=== PATIENT | female | born 1990 | race Asian ===

== ENCOUNTER 2020-02-04 01:00 | Inpatient (IN) ==
[2020-02-04] MEDS ORDERED: OXYTOCIN 30 UNITS/500 ML BAG IV PRN ×2 (09:58)
--- NOTE | 2020-02-04 10:17 | History & Physical Report ---
Date of Service February 04, 2020 Assessment & Plan (1) Supervision of normal intrauterine in primigravida: 29 y/o at 41w1d who presents for a scheduled induction for late-term . Covid+ 01/20/20. Otherwise uncomplicated . GBS neg. O+. Rubella immune. - category I tracing. continue monitoring. - reactive NST 02/03/20. - maternal tachycardia 100 bpm on admission. will monitor. - IOL. titrate pitocin. - patient requested epidural. anesthesia consult placed. - NPO. LR 125/hr. - urine dip pending. - Covid+ 01/20/20. Negative covid test on 01/27/20 ([facility]). Patient has discussed w/ Dr. Braun from [facility] and has permission to deliver in regular room w/ at bedside as long as continues to be asymptomatic. Denies recent travel or sick contact. Denies covid symptoms, no cough, sore throat, fever/chills, diarrhea. - flu shot UTD 11/08/19 SB. (2) LGSIL on Pap smear of cervix: - LGSIL pap--> plan for colposcopy Admission and Anticipated Discharge Date Admission Date: February 04, 2020 History of Present Illness Primary Care Provider: NO PCP Valerie Pisano" Geo is a 29 y/o female currently at 41w1d WGA with an JAGDEEP 01/27/20 as determined by LMP who is here for scheduled induction for late-term . COVID+ on 01/20/20, w/ negative test on 01/27/20. Otherwise uncomplicated . intermittent irregular contractions; + movement; - fluid loss; - bloody show. Currently, denies pain. Had regular appointments with OB. Labs: Blood type: O+ (07/20/19) Antibody screen: negative (07/20/19) H.3 (today) Hct: 35.0L (today) WBC: 11.09H (today) Plt: 269 (today) Rubella: immune (07/20/19) RPR: nonreactive (07/20/19) Gonorrhea: not detected (05/21/19) Chlamydia: not detected (05/21/19) HIV: neg (07/20/19) HbSAg: neg (07/20/19) GBS: neg (01/03/20) Other screens: Labs Reviewed: declines CF/SMA & panorama -MH declines quad- TJH gbs neg--akh Allergies Allergy/AdvReac Type Severity Reaction Status Date / Time No Known Allergies Allergy Verified 02/03/20 15:30 Home Medications Medication Instructions Recorded Confirmed Type prenat.vits,evita,paw-xawh-wawcc 1 tab PO DAILY 06/09/19 02/04/20 History Patient History Medical History (Updated 02/04/20 @ 10:25 by Jimbo Cornejo MD) No acute medical problems Varicella vaccine Surgical History [place] teeth removed Family History (Updated 02/04/20 @ 10:20 by Jimbo Cornejo MD) Family/Other Heart disease Father Myocardial infarction Grandfather (Maternal) Myocardial infarction Social History (Updated 06/09/19 @ 13:16 by Cailin Agustin) Smoking Status: Never smoker Hx Alcohol Use: No Hx Substance Use: No Preferred Language: [place] Citizen Communication Ability: Effective Electrical Instrumentation Technician Required: No Beliefs That Will Affect Care: None marital status: marital status details: Hubert Sevilla 30 Current Living Situation: Spouse Current Living Situation Comment: lives with spouse, 2 cats does not change litter current occupational status: unemployed current occupation: homemaker Other Information That Helps Us Care for You: No Feels Safe at Home: Yes Safety Concerns: Feels Safe At This Time Assistive Devices: None Review of Systems Denies fever, chills, sweats Denies shortness of breath, difficulty breathing, chest pain, palpitations, chest pressure. Denies breast pain. Denies dysuria. Denies headache Denies nausea/vomiting. Denies numbness, tingling, weakness. Physical Exam Physical Exam: General: Alert, oriented. No acute distress. Cardiac: Regular rate and rhythm, no murmurs/rubs/gallops. Respiratory: Clear to auscultation bilaterally, no wheezes/rales/rhonchi. No increased work of breathing. Symmetrical chest rise. No respiratory distress. Abdomen: Gravid; + FHTs Pelvic: Exam deferred. Please see attending note. Lower Extremities: No lower extremity edema or swelling. No deep calf pain. Jagruti's negative bilaterally Results & Data ([facility]) Vital Signs (Past 12 Hours) Vital Signs Pulse BP 02/04/20 10:00 100 H 117/73 Monitoring External Monitor External FHT and external uterine monitors used; Category I tracing; baseline upper 130s. moderate FHT variability. + accels. No late or variable decels. No ctx Supervising Physician Co-Signing Physician Notes Resident Physician Supervision Note: I interviewed and examined the patient. Discussed with Dr. Cornejo and agree with findings and plan as documented in the note. Any exceptions or clarifications are listed here: pt here for planned induction, start pit and plan arom with regular pattern. sve 2-3/50/-2, efw 7.5#.fhts categ 1. pt and partner deny any ?s or concerns. Documented By: Nilsa Zee MD, FACOG Resident Activity Tracking Resident Involvement: Resident Care Provided Care Provided: OB Delivery
[2020-02-04 10:26] LABS: Hemoglobin 12.3 g/dL (12.0-16.0); Mean Corpuscular Hemoglobin 21.7 pg (25-34); Mean Corpuscular Hgb Conc 35.1 g/dL (32-36); Mean Corpuscular Volume 61.7 fL (80-100); Mean Platelet Volume 8.9 fL (7.4-10.4); Nucleated RBC # (auto) 0.06 K/uL (0-0); Nucleated RBC % (auto) 0.6 %; Platelet Count 269 K/uL (130-400); RDW Coefficient of Variation 16.5 % (11.5-14.5); Red Blood Count 5.67 M/uL (4.2-5.4); White Blood Count 11.09 K/uL (4.8-10.8)
[2020-02-04] MEDS: LACTATED RINGER'S 1,000 ML IV PRN ×3 (11:10→18:48)
--- NOTE | 2020-02-04 13:11 | Labor Progress Brief Note ---
Date of Service February 04, 2020 Subjective Reason For Note: Routine Evaluation pt feeling urge to push, 10cm per nurse Assessment & Plan (1) Encounter for elective induction of labor: (2) Gestational hypertension: begin 2nd stage. Admission and Anticipated Discharge Date Admission Date: February 04, 2020 Physical Exam Constitutional: WD/WN, vitals as above Genitourinary: OB Exam Monitor Tracing: + external FHT monitor used (140 mod variability), + external uterine monitor used (q2-3), + category II, + normal FHT variability and + variable decelerations Results & Data ([facility]) Vital Signs (Past 12 Hours) Vital Signs Temp Pulse Resp BP 02/04/20 13:00 18 02/04/20 12:05 90 114/71 02/04/20 12:00 20 02/04/20 11:30 20 02/04/20 11:29 105 H 119/76 02/04/20 11:00 20 02/04/20 10:30 98.1 F 18 02/04/20 10:15 20 02/04/20 10:08 98.1 F 20 02/04/20 10:00 100 H 117/73 Coding Level of Care Code None Diagnoses Encounter for elective induction of labor Z34.90 Gestational hypertension O13.9
--- NOTE | 2020-02-04 13:17 | Labor Progress Brief Note ---
Date of Service February 04, 2020 Subjective Reason For Note: Routine Evaluation feeling some tightening Assessment & Plan (1) Encounter for elective induction of labor: (2) Post-dates : will see how arom advances labor. fhts categ 1. c/w pitocin Admission and Anticipated Discharge Date Admission Date: February 04, 2020 Physical Exam Constitutional: WD/WN, vitals as above Genitourinary: Manual OB Exam: + cervical dilation (2-3), + cervical effacement (75%), + station -2 and + amniotic fluid (arom, mec) OB Exam Monitor Tracing: + external FHT monitor used (125 mod variability), + external uterine monitor used (q2-3), + category I and + normal FHT variability Results & Data ([facility]) Vital Signs (Past 12 Hours) Vital Signs Temp Pulse Resp BP 02/04/20 13:12 91 H 02/04/20 13:00 18 02/04/20 12:05 90 114/71 02/04/20 12:00 20 02/04/20 11:30 20 02/04/20 11:29 105 H 119/76 02/04/20 11:00 20 02/04/20 10:30 98.1 F 18 02/04/20 10:15 20 02/04/20 10:08 98.1 F 20 02/04/20 10:00 100 H 117/73 Coding Level of Care Code None Diagnoses Encounter for elective induction of labor Z34.90 Post-dates O48.0
[2020-02-04] MEDS ORDERED: BUPIVACAINE 0.25% 30 ML VIAL ONE (15:06)
[2020-02-04] MEDS ORDERED: SODIUM CHLORIDE 0.9% INJ 10 ML VIAL ONE (15:06)
[2020-02-04] MEDS ORDERED: ePHEDrine sulfate 50 MG/ML AMP ONE (15:06)
[2020-02-04] MEDS ORDERED: fentaNYL citrate 100 MCG/2 ML VIAL ONE (15:07)
[2020-02-04] MEDS ORDERED: fentaNYL 2MCG/ML ROPIVACAINE 1.25MG/ML 100 ML BAG EPI ONE (15:07)
[2020-02-04] MEDS ORDERED: ONDANSETRON INJ 2 MG/ML 2 ML VIAL IV PRN (17:11)
[2020-02-04] MEDS ORDERED: diphenhydrAMINE 50 MG/ML VIAL IV PRN (17:11)
[2020-02-04] MEDS ORDERED: ePHEDrine sulfate 50 MG/ML AMP IV PRN (17:11)
[2020-02-04] MEDS ORDERED: NALOXONE HCL 0.4 MG/1 ML VIAL/CARP IV PRN (17:11)
[2020-02-04] MEDS ORDERED: NALOXONE HCL 1 MG in SODIUM CHLORIDE 0.9% 1000ML 1,000 ML IV PRN (17:11)
[2020-02-04] MEDS ORDERED: fentaNYL 2MCG/ML ROPIVACAINE 1.25MG/ML 100 ML BAG EPI PRN (17:11)
[2020-02-04] MEDS ORDERED: PROMETHAZINE HCL 6.25 MG in SODIUM CHLORIDE 0.9% 50 ML IV PRN (17:11)
--- NOTE | 2020-02-04 17:13 | Anesthesiology Consultation ---
Date of Service February 04, 2020 Assessment & Plan (1) Encounter for pre-operative examination: Chart Review Chart Review: Patient NOT seen in Pre Admission Testing and Acceptable Risk for Labor Epidural Consults Requested none ASA ASA2 Proposed Anesthesia Anesthesia Type: Labor Epidural Risk / Benefits Reviewed With: PT / POA / Parent / Guardian, Accepts Plan and Informed Consent Obtained History Height/Weight Height: 5 ft 6 in Weight: 81.647 kg Allergies Allergy/AdvReac Type Severity Reaction Status Date / Time No Known Allergies Allergy Verified 02/03/20 15:30 Medications Home Medications Medication Instructions Recorded Confirmed Last Taken prenat.vits,evita,woq-gpug-krtle 1 tab PO DAILY 06/09/19 02/04/20 Unknown Active Medications Generic Name Dose Route Start Last Admin Trade Name Freq PRN Reason Stop Dose Admin Oxytocin 30 units in 500 mls @ 11 mls/hr 02/04/20 09:58 02/04/20 16:40 Pitocin IV 02/06/20 09:57 0.66 units/hr .Q24H PRN 11 mls/hr Labor Induction/Augmentation Titration Protocol 0.66 UNITS/HR Lactated Ringer's 1,000 mls @ 125 mls/hr 02/04/20 09:58 02/04/20 16:35 Lr IV 02/06/20 09:57 125 mls/hr .Q8H PRN Infusion L&D Protocol Protocol Past Medical History Medical History No acute medical problems Varicella vaccine Exercise / Class Metabolic Activity II 4-5 Yardwork/Stairs/Walk up hill Past Family History Family History Family/Other Heart disease Father Myocardial infarction Grandfather (Maternal) Myocardial infarction Past Surgical History Surgical History [place] teeth removed Past Anesthesia History No Hx of Anesthesia Complications and No Family Hx of Anesthesia Complications History of PONV No Hx of PONV and No Hx of Motion Sickness Social History Smoking Status: Never smoker Hx Alcohol Use: No Hx Substance Use: No substance use type: does not use Physical Exam Vital Signs Last Vital Signs Temp 36.4 C L 02/04/20 14:50 Pulse 90 02/04/20 17:11 Resp 20 12/18/20 16:31 BP 86/51 L 02/04/20 17:07 Pulse Ox 98 02/04/20 17:11 ENMT Mouth: no dentition abnormality Thyromental Distance: > or= 3.5 Finger Breadths Mallampati Class: II Neck normal visual inspection Respiratory normal respiratory effort Auscultation: lungs clear to auscultation bilaterally Cardiovascular Rate/Rhythm: regular rate and regular rhythm Psychiatric Orientation: alert Testing Laboratory Results 02/04/20 10:14
--- NOTE | 2020-02-04 17:27 | Labor Progress Brief Note ---
Date of Service February 04, 2020 Subjective Reason For Note: Routine Evaluation comfortable with epidural, just vomited, bp low, getting ephedrine Assessment & Plan (1) Post-dates : (2) Encounter for elective induction of labor: will use iupc to guide pitocin. d/w nursing and they felt would benefit. pit at13. fhts categ 1. Admission and Anticipated Discharge Date Admission Date: February 04, 2020 Physical Exam Constitutional: WD/WN, vitals as above Genitourinary: Manual OB Exam: + cervical dilation (3), + cervical effacement (75) and + station -2 OB Exam Monitor Tracing: + external FHT monitor used (150 mod variability), + external uterine monitor used (q2-3 pit at 13), + intra-uterine pressure catheter used (placed), + category I and + normal FHT variability Results & Data ([place]) Vital Signs (Past 12 Hours) Vital Signs Temp Pulse Resp BP Pulse Ox 02/04/20 17:22 106 H 88/54 L 02/04/20 17:21 101 H 99 02/04/20 17:16 128 H 99 02/04/20 17:11 90 98 02/04/20 17:07 96 H 86/51 L 02/04/20 17:06 89 96 02/04/20 17:01 97 H 20 100 02/04/20 16:59 97.7 F 02/04/20 16:56 96 H 100 02/04/20 16:53 96 H 87/52 L 02/04/20 16:51 94 H 99 02/04/20 16:46 97 H 99 02/04/20 16:44 91 H 112/54 L 02/04/20 16:41 90 98 02/04/20 16:39 85 92 02/04/20 16:37 91 H 88/44 L 02/04/20 16:36 87 98 02/04/20 16:31 92 H 20 94 02/04/20 16:26 103 H 99 02/04/20 16:24 94 H 88/43 L 02/04/20 16:21 100 H 20 99 02/04/20 16:16 82 99 02/04/20 16:14 85 93 02/04/20 16:11 107 H 100 02/04/20 16:07 98 H 107/54 L 02/04/20 16:06 97 H 20 100 02/04/20 16:03 112 H 110/53 L 02/04/20 16:02 105 H 105/51 L 02/04/20 16:01 120 H 99 02/04/20 15:58 93 H 85/46 L 02/04/20 15:56 88 99 02/04/20 15:51 103 H 104/52 L 99 02/04/20 15:50 20 02/04/20 15:49 93 H 111/54 L 02/04/20 15:48 94 H 116/58 L 02/04/20 15:46 97 H 100 02/04/20 15:45 99 H 117/57 L 02/04/20 15:42 93 H 115/59 L 02/04/20 15:41 92 H 99 02/04/20 15:36 89 99 02/04/20 15:31 88 98 02/04/20 15:26 87 112/79 99 02/04/20 14:54 83 129/82 02/04/20 14:50 97.5 F L 20 02/04/20 14:30 18 02/04/20 14:11 83 109/70 02/04/20 14:00 98.2 F 18 02/04/20 13:30 20 02/04/20 13:12 91 H 02/04/20 13:00 18 02/04/20 12:05 90 114/71 02/04/20 12:00 97.9 F 20 02/04/20 11:30 20 02/04/20 11:29 105 H 119/76 02/04/20 11:00 20 02/04/20 10:30 98.1 F 18 02/04/20 10:15 20 02/04/20 10:08 98.1 F 20 02/04/20 10:00 100 H 117/73 Coding Level of Care Code None Diagnoses Post-dates O48.0 Encounter for elective induction of labor Z34.90
--- NOTE | 2020-02-04 22:00 | Labor Progress Brief Note ---
Date of Service February 04, 2020 Subjective Reason For Note: Routine Evaluation feeling some pressure Assessment & Plan (1) Encounter for elective induction of labor: (2) Post-dates : good cx change. fhts categ 1. c/w pit. Admission and Anticipated Discharge Date Admission Date: February 04, 2020 Physical Exam Constitutional: WD/WN, vitals as above Genitourinary: Manual OB Exam: + cervical dilation 8 cm, + cervical effacement 90% and + station 0 OB Exam Monitor Tracing: + external FHT monitor used (140 mod variability), + external uterine monitor used (q2-3), + category I and + normal FHT variability Results & Data ([facility]) Vital Signs (Past 12 Hours) Vital Signs Temp Pulse Resp BP Pulse Ox 02/04/20 21:52 109 H 119/66 20 21:51 97 H 100 1820 21:46 93 H 99 1820 21:41 91 H 96 1820 21:38 93 H 117/59 L 20 21:36 90 96 1820 21:31 91 H 96 18/20 21:26 99 H 95 18/20 21:22 105 H 120/60 18/20 21:21 96 H 96 18/20 21:16 91 H 98 18/20 21:11 94 H 96 18/20 21:07 93 H 115/61 18/20 21:06 98 H 97 18/20 21:01 98 H 98 18/20 20:56 88 97 1820 20:52 106 H 106/59 L 20 20:51 98.4 F 99 H 99 18/20 20:48 96 H 119/61 18/20 20:46 106 H 98 18/20 20:41 90 98 18/20 20:36 91 H 97 18/20 20:31 90 18 98 18/20 20:26 92 H 99 18/20 20:23 89 120/61 18/20 20:21 106 H 99 18/20 20:16 87 99 18/20 20:11 91 H 100 18/20 20:08 92 H 119/60 12/18/20 20:06 97 H 100 12/18/20 20:01 113 H 18 100 12/18/20 19:56 100 H 100 12/18/20 19:52 102 H 114/62 12/18/20 19:51 97 H 100 12/18/20 19:46 93 H 100 12/18/20 19:41 89 100 12/18/20 19:38 93 H 123/64 12/18/20 19:36 123 H 100 12/18/20 19:31 92 H 18 100 12/18/20 19:26 105 H 100 12/18/20 19:22 113 H 121/66 12/18/20 19:21 111 H 100 12/18/20 19:18 97.9 F 18 12/18/20 19:16 98 H 100 12/18/20 19:11 102 H 100 12/18/20 19:07 114 H 108/57 L 12/18/20 19:06 96 H 100 12/18/20 19:01 105 H 100 12/18/20 18:56 111 H 100 12/18/20 18:53 105 H 108/62 12/18/20 18:51 102 H 100 12/18/20 18:46 95 H 100 12/18/20 18:41 122 H 100 12/18/20 18:37 107 H 127/67 12/18/20 18:36 105 H 100 12/18/20 18:31 99 H 18 100 12/18/20 18:26 107 H 100 12/18/20 18:23 111 H 112/64 12/18/20 18:21 100 H 100 12/18/20 18:16 100 H 100 12/18/20 18:11 110 H 99 12/18/20 18:08 109 H 116/66 12/18/20 18:06 102 H 100 12/18/20 18:01 110 H 20 100 12/18/20 17:56 116 H 100 12/18/20 17:52 107 H 119/67 12/18/20 17:51 106 H 98 12/18/20 17:46 107 H 20 99 12/18/20 17:41 103 H 97 12/18/20 17:37 96 H 133/76 12/18/20 17:36 94 H 100 12/18/20 17:31 111 H 20 100 12/18/20 17:28 88 100/54 L 12/18/20 17:26 96 H 100 12/18/20 17:22 106 H 88/54 L 12/18/20 17:21 101 H 99 12/18/20 17:16 128 H 20 99 12/18/20 17:11 90 98 12/18/20 17:07 96 H 86/51 L 12/18/20 17:06 89 96 12/18/20 17:01 97 H 20 100 12/18/20 16:59 97.7 F 12/18/20 16:56 96 H 100 12/18/20 16:53 96 H 87/52 L 12/18/20 16:51 94 H 99 12/18/20 16:46 97 H 99 12/18/20 16:44 91 H 112/54 L 12/18/20 16:41 90 98 12/18/20 16:39 85 92 12/18/20 16:37 91 H 88/44 L 12/18/20 16:36 87 98 12/18/20 16:31 92 H 20 94 12/18/20 16:26 103 H 99 12/18/20 16:24 94 H 88/43 L 12/18/20 16:21 100 H 20 99 12/18/20 16:16 82 99 12/18/20 16:14 85 93 12/18/20 16:11 107 H 100 12/18/20 16:07 98 H 107/54 L 12/18/20 16:06 97 H 20 100 12/18/20 16:03 112 H 110/53 L 12/18/20 16:02 105 H 105/51 L 12/18/20 16:01 120 H 99 12/18/20 15:58 93 H 85/46 L 12/18/20 15:56 88 99 12/18/20 15:51 103 H 104/52 L 99 12/18/20 15:50 20 12/18/20 15:49 93 H 111/54 L 12/18/20 15:48 94 H 116/58 L 12/18/20 15:46 97 H 100 12/18/20 15:45 99 H 117/57 L 12/18/20 15:42 93 H 115/59 L 12/18/20 15:41 92 H 99 12/18/20 15:36 89 99 02/04/20 15:31 88 98 02/04/20 15:26 87 112/79 99 02/04/20 14:54 83 129/82 02/04/20 14:50 97.5 F L 20 02/04/20 14:30 18 02/04/20 14:11 83 109/70 02/04/20 14:00 98.2 F 18 02/04/20 13:30 20 02/04/20 13:12 91 H 02/04/20 13:00 18 02/04/20 12:05 90 114/71 02/04/20 12:00 97.9 F 20 02/04/20 11:30 20 02/04/20 11:29 105 H 119/76 02/04/20 11:00 20 02/04/20 10:30 98.1 F 18 02/04/20 10:15 20 02/04/20 10:08 98.1 F 20 02/04/20 10:00 100 H 117/73 Coding Level of Care Code None Diagnoses Encounter for elective induction of labor Z34.90 Post-dates O48.0
[2020-02-05] MEDS ORDERED: MINERAL OIL 30 ML UDC ONE (00:10)
[2020-02-05] MEDS ORDERED: LIDOCAINE HCL 1% 20 ML VIAL ONE (00:43)
[2020-02-05] MEDS ORDERED: oxyCODONE/ACETAMINOPHEN 5mg/325mg TAB PO PRN (01:06)
[2020-02-05] MEDS ORDERED: ACETAMINOPHEN 325 MG TAB PO PRN (01:06)
[2020-02-05] MEDS ORDERED: OXYTOCIN 30 UNITS/500 ML BAG IV PRN (01:06)
[2020-02-05] MEDS ORDERED: SUPERCREAM 0.870% 15 GM JAR EXT PRN (01:09)
[2020-02-05] MEDS ORDERED: DIPHTHERIA/TETANUS/PERTUSSIS 0.5 ML SYR/VIAL IM ONE (01:09)
[2020-02-05] MEDS ORDERED: HYDROCORTISONE ACETATE 25 MG SUPP PR PRN (01:09)
[2020-02-05] MEDS ORDERED: BENZOCAINE 20% AER SPR 82.5 GM CAN EXT PRN (01:09)
[2020-02-05] MEDS ORDERED: miSOPROStoL 200 MCG TAB PR ONE (01:09)
[2020-02-05] MEDS: OXYTOCIN 20 UNITS in LACTATED RINGER'S 1,000 ML IV SCH ×2 (01:10→09:32)
--- NOTE | 2020-02-05 01:12 | Delivery Summary ---
Vaginal Delivery Summary Date of Service February 05, 2020 The patient dilated to complete and pushed to deliver a viable female infant Ap gars 8 and 9 via over partial 3rd degree perineal laceration. Mouth and nose bulb suctioned at perineum. Shoulders and body delivered with ease. was vigorous and crying at . Cord clamped at 30 seconds of life and infant to maternal abdomen where the cord was then doubly clamped and cut. Placenta delivered spontaneously and intact, three-vessel cord. Hemostasis not achieved with dilute pitocin and uterine massage and therefore 800mcg cytotec placed rectally. Bladder drained under sterile conditions for approximately 300 cc under sterile conditions. Hemostasis is improving. Laceration repaired in multiple layers with 2-0 and 3-0 vicryl and anterior anal capsule reapproximated. Bilateral labia lacerations noted. Rectal neg for sutures. Cervix and sulci intact. EBL 400 cc. Mother and baby stable recovery. [facility] Vaginal Delivery Charge Vaginal Delivery Codes: 54139 global code for the antepartum, delivery, and post-
[2020-02-05] MEDS ORDERED: miSOPROStoL 200 MCG TAB ONE (04:25)
--- NOTE | 2020-02-05 07:56 | Anesthesia Procedure Note ---
Date of Service February 05, 2020 Anesthesia Post Epidural Note Vital Signs Vital Signs: Temp Pulse Resp BP Pulse Ox 37.1 C 100 H 18 127/61 98 02/05/20 03:15 02/05/20 03:15 02/05/20 03:15 02/05/20 03:15 02/05/20 00:41 Pain Intensity Lower Abdomen: Pain Intensity: 0 Notes Mental Status: alert / awake / arousable and participated in evaluation Patient Amnestic to Procedure: Yes Nausea / Vomiting: adequately controlled Pain: adequately controlled Airway Patency, RR, SpO2: stable & adequate BP & HR: stable & adequate Hydration State: stable & adequate Anesthetic Complications: no major complications apparent and Pt Satisfied with anesthetic care
[2020-02-05] MEDS: DOCUSATE SODIUM 100 MG CAP PO SCH ×2 (07:57→20:38)
[2020-02-05] MEDS: IBUPROFEN 600 MG TAB PO PRN ×4 (07:57→23:01)
[2020-02-06 05:53] LABS: Hematocrit (blood only) 30.9 % (37-47)
--- NOTE | 2020-02-06 08:01 | Obstetrical Progress Note ---
Date of Service February 06, 2020 Assessment & Plan (1) Post-dates : ppd 2 meets criteria. home Subjective Ambulation: ambulating normally Voiding: no voiding problems Diet Tolerance:: regular diet Lochia:: Small Feeding Type:: breast feeding Current Pain Level(1-10): 1 Physical Exam Constitutional WD/WN, vitals as above (Ext neg) Results & Data ([facility]) Vital Signs (Past 12 Hours) Vital Signs Temp Pulse Resp BP Pulse Ox 02/06/20 07:20 97.7 F 73 18 119/79 100 02/05/20 23:00 97.5 F L 76 16 109/74 100
[2020-02-06] MEDS: DOCUSATE SODIUM 100 MG CAP PO SCH (08:31)
== END 2020-02-06 13:05 | disposition home or self-care (01) | DRG 768 ==
LOC: 4S1 09:49 → 4S2 02-05 03:31

== ENCOUNTER 2021-12-07 17:00 | Inpatient (IN) ==
[2021-12-07] MEDS ORDERED: LIDOCAINE 1% LOCAL 20 ML VIAL INFIL PRN (17:31)
[2021-12-07] MEDS ORDERED: OXYTOCIN 30 UNITS/500 ML BAG IV PRN ×2 (17:31→22:49)
[2021-12-07] MEDS: LACTATED RINGER'S 1,000 ML IV PRN ×2 (17:46→20:58)
[2021-12-07 17:55] LABS: Hematocrit (blood only) 34.5 % (34.1-44.9); Mean Corpuscular Hemoglobin 21.3 pg (25.0-34.0); Mean Corpuscular Hgb Conc 34.8 g/dL (32.0-36.0); Mean Corpuscular Volume 61.3 fL (80.0-100.0); Mean Platelet Volume 9.3 fL (9.4-12.3); Nucleated RBC # (auto) 0.06 K/uL (0-0); Nucleated RBC % (auto) 0.4 %; Platelet Count 312 K/uL (130-400); RDW Coefficient of Variation 17.2 % (11.5-14.5); RDW Standard Deviation 33.4 fL (36.4-46.3); Red Blood Count 5.63 M/uL (3.93-5.22); White Blood Count 15.86 K/ul (4.8-10.8)
[2021-12-07] MEDS ORDERED: fentaNYL citrate 100 MCG/2 ML VIAL ONE (17:57)
[2021-12-07] MEDS ORDERED: LIDOCAINE 2%/EPINEPHRINE 1:200,000 20 ML SDV ONE (17:57)
[2021-12-07] MEDS ORDERED: ePHEDrine sulfate 50 MG/ML AMP ONE (17:57)
[2021-12-07] MEDS ORDERED: BUPIVACAINE 0.25% 30 ML VIAL ONE (17:57)
[2021-12-07] MEDS ORDERED: SODIUM CHLORIDE 0.9% INJ 10 ML VIAL ONE (17:57)
[2021-12-07] MEDS ORDERED: fentaNYL 2MCG/ML ROPIVACAINE 1.25MG/ML 100 ML BAG EPI ONE (17:58)
--- NOTE | 2021-12-07 19:05 | History & Physical Report ---
Date of Service December 07, 2021 Assessment & Plan (1) Supervision of normal intrauterine in multigravida: Plan: Patient is a 31-year-old presents in early labor. 1. Fetus: Cat 1 2.Labor: AROM when admitted 3. GBS negative 4. Vitals normal (2) Normal labor: History of Present Illness Primary Care Provider: Bc Montesinos III, CRNP patient is a 31-year-old currently at 40 weeks 3 days gestational age presents with early labor. Patient was found to be 5 cm dilated in clinic earlier today. Patient reports that contractions have increased in frequency and intensity and recurrent Occurring about every 5 minutes. Denies any leakage of fluid or vaginal bleeding. Patient's complicated by anemia. Allergies Allergy/AdvReac Type Severity Reaction Status Date / Time No Known Allergies Allergy Verified 12/07/21 11:03 Home Medications Medication Instructions Recorded Confirmed Type prenat.vits,evita,tkv-jfgi-iwgjo 1 tab PO DAILY 06/09/19 12/07/21 History Patient History Medical History No acute medical problems Supervision of normal intrauterine in primigravida Varicella vaccine Surgical History [place] teeth removed Family History Family/Other Heart disease Father Myocardial infarction Grandfather (Maternal) Myocardial infarction Denies family history of Ovarian cancer Prostate cancer Breast cancer Colorectal cancer Social History Smoking Status: Never smoker Second Hand Exposure: No; Hx Alcohol Use: No Hx Substance Use: No Preferred Language: Trin[place] Communication Ability: Effective Visual Impairment: No Limitations Hearing Ability: Normal Skills Instructor Required: No Beliefs That Will Affect Care: None marital status: marital status details: Hubert Sevilla 34 Current Living Situation: Family Current Living Situation Comment: lives with spouse, daughter, current occupational status: employed current occupation: [employer] Other Information That Helps Us Care for You: No Feels Safe at Home: Yes Safety Concerns: Feels Safe At This Time Childhood Exposure to Second-Hand Smoke: No Dental Care, Regularly: Yes Physical Activity Frequency: 5-6 Times per Week Physical Activity Frequency Comment: lift weights, run Seatbelt Use: always Sunscreen Use: Yes Assistive Devices: None Physical Exam Genitourinary: normal external appearance Manual OB Exam: + cervical dilation 6 cm, + cervical effacement 90% and + station -1 OB Exam Monitor Tracing: + external FHT monitor used, + external uterine monitor used, + category I and + normal FHT variability Results & Data ([facility]) Vital Signs (Past 12 Hours) Vital Signs Temp Pulse Resp BP 12/07/21 17:15 96 H 107/62 12/07/21 17:12 36.7 C 18 Coding Level of Care Code None Diagnoses Supervision of normal intrauterine in multigravida Z34.80 Normal labor O80; Z37.9
--- NOTE | 2021-12-07 19:12 | Anesthesiology Consultation ---
Date of Service December 07, 2021 Assessment & Plan Chart Review Chart Review: Patient NOT seen in Pre Admission Testing and Acceptable Risk for Labor Epidural Consults Requested none ASA ASA2 Proposed Anesthesia Anesthesia Type: Labor Epidural Risk / Benefits Reviewed With: PT / POA / Parent / Guardian, Accepts Plan and Informed Consent Obtained History Height/Weight Height: 5 ft 6 in Weight: 75.296 kg Allergies Allergy/AdvReac Type Severity Reaction Status Date / Time No Known Allergies Allergy Verified 12/07/21 11:03 Medications Home Medications Medication Instructions Recorded Confirmed Last Taken prenat.vits,evita,sze-ttnu-uvcry 1 tab PO DAILY 06/09/19 12/07/21 12/06/21 22:00 Active Medications Generic Name Dose Route Start Last Admin Trade Name Freq PRN Reason Stop Dose Admin Lactated Ringer's 1,000 mls @ 125 mls/hr 12/07/21 17:31 12/07/21 17:46 Lr IV 12/09/21 17:30 999 mls/hr .Q8H PRN Administration L&D Protocol Protocol Past Medical History Medical History No acute medical problems Supervision of normal intrauterine in primigravida Varicella vaccine Exercise / Class Metabolic Activity II 4-5 Yardwork/Stairs/Walk up hill Past Family History Family History Family/Other Heart disease Father Myocardial infarction Grandfather (Maternal) Myocardial infarction Denies family history of Ovarian cancer Prostate cancer Breast cancer Colorectal cancer Past Surgical History Surgical History [place] teeth removed Past Anesthesia History No Hx of Anesthesia Complications and No Family Hx of Anesthesia Complications History of PONV No Hx of PONV and No Hx of Motion Sickness Social History Smoking Status: Never smoker Hx Alcohol Use: No Alcohol type: beer Hx Substance Use: No substance use type: does not use Physical Exam Vital Signs Last Vital Signs Temp 36.7 C 12/07/21 17:15 Pulse 105 H 12/07/21 19:08 Resp 18 12/07/21 17:12 BP 119/56 L 12/07/21 19:08 Pulse Ox 100 12/07/21 19:06 ENMT Mouth: no dentition abnormality Thyromental Distance: > or= 3.5 Finger Breadths Mallampati Class: II Neck normal visual inspection Respiratory normal respiratory effort Auscultation: lungs clear to auscultation bilaterally Cardiovascular Rate/Rhythm: regular rate and regular rhythm Psychiatric Orientation: alert Testing Laboratory Results 12/07/21 17:43
[2021-12-07] MEDS ORDERED: NALOXONE HCL 1 MG in SODIUM CHLORIDE 0.9% 1000ML 1,000 ML IV PRN (19:13)
[2021-12-07] MEDS ORDERED: PROMETHAZINE HCL 6.25 MG in SODIUM CHLORIDE 0.9% 50 ML IV PRN (19:13)
[2021-12-07] MEDS ORDERED: NALBUPHINE HCL INJ 10 MG/ML AMP IV PRN (19:13)
[2021-12-07] MEDS ORDERED: diphenhydrAMINE 50 MG/ML VIAL IV PRN (19:13)
[2021-12-07] MEDS ORDERED: NALOXONE HCL 0.4 MG/1 ML VIAL/CARP IV PRN (19:13)
[2021-12-07] MEDS ORDERED: ONDANSETRON INJ 2 MG/ML 2 ML VIAL IV PRN (19:13)
[2021-12-07] MEDS ORDERED: ePHEDrine sulfate 50 MG/ML AMP IV PRN (19:13)
[2021-12-07] MEDS ORDERED: fentaNYL 2MCG/ML ROPIVACAINE 1.25MG/ML 100 ML BAG EPI PRN (19:13)
[2021-12-07] MEDS ORDERED: HYDROCORTISONE ACETATE 25 MG SUPP PR PRN (22:49)
[2021-12-07] MEDS ORDERED: IBUPROFEN 600 MG TAB PO PRN (22:49)
[2021-12-07] MEDS ORDERED: DIPHTHERIA/TETANUS/PERTUSSIS 0.5 ML SYR/VIAL IM ONE (22:49)
[2021-12-07] MEDS ORDERED: bisacodyL 10 MG SUPP PR PRN (22:49)
[2021-12-07] MEDS ORDERED: BENZOCAINE 20% AER SPR 82.5 GM CAN EXT PRN (22:49)
[2021-12-07] MEDS ORDERED: ACETAMINOPHEN 325 MG TAB PO PRN (22:49)
--- NOTE | 2021-12-07 23:11 | Anesthesia Procedure Note ---
Date of Service December 07, 2021 Anesthesia Post Epidural Note Vital Signs Vital Signs: Temp Pulse Resp BP Pulse Ox 36.9 C 108 H 18 124/59 L 100 12/07/21 21:00 12/07/21 22:56 12/07/21 22:55 12/07/21 22:56 12/07/21 22:36 Notes Mental Status: alert / awake / arousable and participated in evaluation Nausea / Vomiting: adequately controlled Pain: adequately controlled Airway Patency, RR, SpO2: stable & adequate BP & HR: stable & adequate Hydration State: stable & adequate Neuraxial Anesthesia: was administered and sensory block is resolving Anesthetic Complications: no major complications apparent and Pt Satisfied with anesthetic care Epidural: Removed without complications
--- NOTE | 2021-12-08 00:52 | Delivery Summary ---
DATE OF SERVICE: 12/07/2021 PROCEDURE: Normal spontaneous vaginal delivery. SURGEON: Taz Krishnan MD PREOPERATIVE DIAGNOSES: 1. Single intrauterine at 40 weeks 3 days gestational age. 2. Spontaneous labor. POSTOPERATIVE DIAGNOSES: 1. Single intrauterine at 40 weeks 3 days gestational age. 2. Spontaneous labor. 3. Status post procedure. ESTIMATED BLOOD LOSS: 300 mL. DRAINS: None. FLUIDS: Continuous lactated Ringer. URINE OUTPUT: Not measured. COMPLICATIONS: None. FINDINGS: Viable female with the weight and Apgars pending. DESCRIPTION OF PROCEDURE: The patient progressed to 10 cm dilated, 100% effaced, positive 2-3 statio n, pushed over intact perineum. With epidural anesthesia, delivered a viable female infant with weigh t and Apgars as noted above. Head of the delivered in FRANCISCO position, restituted to left trans verse. No nuchal cord was noted. Body and shoulders quickly followed. was noted to be trent ronda soon after delivery and a 1-minute delayed cord clamping was initiated. Cord was then double cl amped and cut. remained on maternal abdomen. Cord blood was obtained. Attention was then t urned to delivery of the placenta, which was delivered intact, 3-vessel cord, gentle cord traction. On inspection of the perineum, vagina, cervix, there was noted to be a second-degree perineal lacerat ion repair. Second-degree perineal laceration was repaired in traditional crown stitch using 3-0 Eron ryl. Needle, sponge, and instrument counts were correct at the completion of the case with mother an d stable in the immediate post-delivery period. Job ID: [id number]
--- NOTE | 2021-12-08 07:15 | Obstetrical Progress Note ---
Date of Service <Yancy Ugarte - Last Filed: 12/08/21 08:01> December 08, 2021 Assessment & Plan <Yancy UgarteDO - Last Filed: 12/08/21 08:01> (1) Status post vaginal delivery: continue OOB, ambulation, diet as tolerated <Taz Krishnan MD - Last Filed: 12/08/21 08:25> (1) Status post vaginal delivery: Subjective <Yancy UgarteDO - Last Filed: 12/08/21 08:01> Valerie is a 31 y/o female who is now PPD # 1 following spontaneous vaginal delivery at 40 4/7 weeks. Reports feeling well overall this morning. Mild abdominal cramping pain well managed on analgesics. Voiding. Tolerating meals overnight and able to ambulate some. Some persistent lochia with some improvement this morning. Breast feeding. Review of Systems Denies fever, chills, sweats Denies shortness of breath, difficulty breathing, chest pain, palpitations, chest pressure. Denies breast pain. Denies dysuria. Denies headache or changes in vision. Physical Exam <Yancy UgarteDO - Last Filed: 12/08/21 08:01> General: Alert, oriented. No acute distress. Cardiac: Regular rate and rhythm, no murmurs/rubs/gallops. Respiratory: Clear to auscultation bilaterally a/p, no wheezes/rales/rhonchi. No increased work of breathing. Symmetrical chest rise. No respiratory distress. Abdomen: Soft, nontender, nondistended. Bowel sounds present. Uterus: Uterine fundus firm, palpable 1 cm below umbilicus. Lower Extremities: No lower extremity edema or swelling. No deep calf pain. Jagruti's negative bilaterally. Results & Data ([facility]) <Yancy UgarteDO - Last Filed: 12/08/21 08:01> Vital Signs (Past 12 Hours) Vital Signs Temp Pulse Pulse Resp BP BP Pulse Ox 12/08/21 02:22 36.6 C 86 18 110/70 99 12/08/21 02:22 36.6 C 86 18 110/70 99 12/08/21 01:00 36.7 C 18 12/08/21 00:40 96 H 18 109/56 L 12/07/21 23:40 86 18 119/68 12/07/21 23:25 107 H 18 121/62 12/07/21 23:10 108 H 18 124/59 L 12/07/21 22:55 100 H 18 12/07/21 22:40 18 12/08/21 00:56 95 H 110/58 L 12/08/21 00:41 96 H 107/53 L 12/08/21 00:26 96 H 109/56 L 12/07/21 23:56 203 H 110/51 L 12/07/21 23:41 86 119/68 12/07/21 23:26 107 H 121/62 12/07/21 21:30 18 12/07/21 21:30 18 12/07/21 23:11 94 H 118/57 L 12/07/21 22:56 108 H 124/59 L 12/07/21 22:25 18 12/07/21 22:25 18 12/07/21 22:41 100 H 151/57 H 12/07/21 22:36 101 H 100 12/07/21 22:31 99 H 100 12/07/21 22:30 102 H 113/64 12/07/21 22:26 114 H 100 12/07/21 22:21 100 H 100 12/07/21 22:00 18 12/07/21 22:00 18 12/07/21 22:16 103 H 100 12/07/21 22:13 110 H 92 12/07/21 22:11 95 H 100 12/07/21 22:06 96 H 100 12/07/21 22:01 104 H 101/55 L 100 12/07/21 21:56 87 100 12/07/21 21:51 97 H 100 12/07/21 21:46 105 H 100 12/07/21 21:45 83 135/60 12/07/21 21:41 107 H 100 12/07/21 21:36 90 100 12/07/21 21:31 89 95/55 L 100 12/07/21 21:26 104 H 100 12/07/21 21:21 99 H 100 12/07/21 21:16 90 100 12/07/21 21:11 87 100 12/07/21 21:06 107 H 100 12/07/21 21:00 18 12/07/21 21:00 36.9 C 18 12/07/21 21:01 110 H 101/60 100 12/07/21 20:56 87 100 12/07/21 20:51 85 100 12/07/21 20:46 93 H 100 12/07/21 20:44 96 H 96/55 L 12/07/21 20:41 101 H 100 12/07/21 20:36 78 100 12/07/21 20:31 82 100 12/07/21 20:30 91 H 18 99/58 L 12/07/21 20:26 102 H 100 12/07/21 20:21 82 100 12/07/21 20:16 102 H 100 12/07/21 20:15 93 H 96/51 L 12/07/21 20:11 74 100 12/07/21 20:06 74 100 12/07/21 20:00 18 12/07/21 20:00 18 12/07/21 20:01 93 H 89/51 L 99 12/07/21 19:56 98 H 100 12/07/21 19:51 101 H 100 12/07/21 19:46 106 H 100 12/07/21 19:44 98 H 101/59 L 12/07/21 19:41 87 100 12/07/21 19:40 101 H 86/53 L 12/07/21 19:36 100 H 100 12/07/21 19:34 78 107/57 L 12/07/21 19:31 78 100 12/07/21 19:30 78 106/55 L 12/07/21 19:26 81 100 12/07/21 19:24 99 H 97/50 L 12/07/21 19:15 18 12/07/21 19:15 18 12/07/21 19:20 18 12/07/21 19:20 18 12/07/21 19:21 100 H 100 12/07/21 19:18 113 H 91/47 L 12/07/21 19:16 97 H 100 O2 Del Method 12/08/21 02:22 Room Air 12/08/21 02:22 12/08/21 01:00 12/08/21 00:40 12/07/21 23:40 12/07/21 23:25 12/07/21 23:10 12/07/21 22:55 12/07/21 22:40 12/08/21 00:56 12/08/21 00:41 12/08/21 00:26 12/07/21 23:56 12/07/21 23:41 12/07/21 23:26 12/07/21 21:30 12/07/21 21:30 12/07/21 23:11 12/07/21 22:56 12/07/21 22:25 12/07/21 22:25 12/07/21 22:41 12/07/21 22:36 12/07/21 22:31 12/07/21 22:30 12/07/21 22:26 12/07/21 22:21 12/07/21 22:00 12/07/21 22:00 12/07/21 22:16 12/07/21 22:13 12/07/21 22:11 12/07/21 22:06 12/07/21 22:01 12/07/21 21:56 12/07/21 21:51 12/07/21 21:46 12/07/21 21:45 12/07/21 21:41 12/07/21 21:36 12/07/21 21:31 12/07/21 21:26 12/07/21 21:21 12/07/21 21:16 12/07/21 21:11 12/07/21 21:06 12/07/21 21:00 12/07/21 21:00 12/07/21 21:01 12/07/21 20:56 12/07/21 20:51 12/07/21 20:46 12/07/21 20:44 12/07/21 20:41 12/07/21 20:36 12/07/21 20:31 12/07/21 20:30 12/07/21 20:26 12/07/21 20:21 12/07/21 20:16 12/07/21 20:15 12/07/21 20:11 12/07/21 20:06 12/07/21 20:00 12/07/21 20:00 12/07/21 20:01 12/07/21 19:56 12/07/21 19:51 12/07/21 19:46 12/07/21 19:44 12/07/21 19:41 12/07/21 19:40 12/07/21 19:36 12/07/21 19:34 12/07/21 19:31 12/07/21 19:30 12/07/21 19:26 12/07/21 19:24 12/07/21 19:15 12/07/21 19:15 12/07/21 19:20 12/07/21 19:20 12/07/21 19:21 12/07/21 19:18 12/07/21 19:16 <Taz Krishnan MD - Last Filed: 12/08/21 08:25> Co-Signing Physician Notes Patient seen with resident and agree with above findings and plan. Patient doing well and will plan for routine care today Resident Activity Tracking <Yancy Ugarte DO - Last Filed: 12/08/21 08:01> Resident Involvement: Resident Care Provided Care Provided: OB Delivery (Post )
[2021-12-08] MEDS: DOCUSATE SODIUM 100 MG CAP PO SCH ×2 (08:38→20:43)
[2021-12-08] MEDS: PRENATAL VITAMIN 1 TAB PO SCH (08:38)
[2021-12-08] MEDS: FERROUS SULFATE 325 MG TAB PO SCH (08:38)
[2021-12-08] MEDS ORDERED: bisacodyL 5 MG TABEC PO SCH (20:00)
--- NOTE | 2021-12-09 07:09 | Obstetrical Progress Note ---
Date of Service December 09, 2021 Assessment & Plan (1) Status post vaginal delivery: 31 yo PP2 from , doing well -Meeting all pp milestones -O+/rubella immune/ -f/u 6 weeks for appt, stable for d/c home today Subjective Ambulation: ambulating normally Voiding: no voiding problems Passing Gas:: Yes Diet Tolerance:: regular diet Lochia:: Small Feeding Type:: breast feeding Pain well managed with medication Review of Systems Denies fevers, chills, n/v, ARCINIEGA, CP, SOB Physical Exam Constitutional WD/WN, vitals as above no acute distress Respiratory normal respiratory effort, lungs clear to auscultation Cardiovascular RRR, no murmur, no edema Gastrointestinal (Abdomen) Percussion/Palpation: abdomen soft; abdomen nontender fundus firm at umbilicus and NT Musculoskeletal BLE symmetric, nonerythematous, nontender Results & Data ([facility]) Vital Signs (Past 12 Hours) Vital Signs Temp Pulse Resp BP Pulse Ox O2 Del Method 12/08/21 23:27 98.1 F 83 18 105/69 98 Room Air 12/08/21 20:34 98.2 F 86 16 96/63 L 98 Room Air
[2021-12-09] MEDS: DOCUSATE SODIUM 100 MG CAP PO SCH (08:20)
[2021-12-09] MEDS: FERROUS SULFATE 325 MG TAB PO SCH (08:20)
[2021-12-09] MEDS: PRENATAL VITAMIN 1 TAB PO SCH (08:20)
== END 2021-12-09 09:10 | disposition home or self-care (01) | DRG 807 ==
LOC: OPB 17:00 → 4S1 17:02 → 4E2 12-08 02:17